=== PATIENT | male | born 1995 | race Caucasian/White ===

== ENCOUNTER 2017-02-04 17:30 | Emergency (ER) | payer SELFPAY ==
[2017-02-04] MEDS ORDERED: PENICILLIN G BENZATHINE 1.2 MILLION UNIT/2 ML DISP.SYRIN IM ONE (20:16)
[2017-02-04] MEDS ORDERED: HYDROCODONE/ACETAMINOPHEN 5-325 MG 6 TAB/DSPK PO PRN (20:16)
--- NOTE | 2017-02-04 20:17 | ER Document Report ---
HPI - HPI Patient complains to provider of: sore throat Onset: Other - 5 days Onset/Duration: Persistent Quality of pain: Achy Pain Level: 2 Context: Patient presents complaining of sore throat for the past 5 days. Patient states he had a fever initially but none today. Associated Symptoms: Earache, Fever, Sore throat. denies: Nonproductive cough, Productive cough, Vomiting Exacerbated by: Denies Relieved by: Denies Similar symptoms previously: Yes Recently seen / treated by doctor: No - ROS ROS below otherwise negative: Yes Systems Reviewed and Negative: Yes All other systems reviewed and negative - CONSTITUTIONAL Constitutional: REPORTS: Fever - EENT EENT: REPORTS: Sore Throat - RESPIRATORY Respiratory: DENIES: Coughing - GASTROINTESTINAL Gastrointestinal: DENIES: Nausea, Patient vomiting - DERM Skin Color: Normal Skin Problems: None Past Medical History - General Information source: Patient - Social History Smoking Status: Current Every Day Smoker Occupation: [employer] Family History: Reviewed & Not Pertinent - Medical History Medical History: Negative Renal/ Medical History: Denies: Hx Peritoneal Dialysis Surgical Hx: Negative Vertical Provider Document - CONSTITUTIONAL Agree With Documented VS: Yes Exam Limitations: No Limitations General Appearance: WD/WN, No Apparent Distress - INFECTION CONTROL TRAVEL OUTSIDE OF THE [place] IN LAST 30 DAYS: No - HEENT HEENT: Atraumatic, Normocephalic, Pharyngeal Exudate, Pharyngeal Tenderness, Pharyngeal Erythema - NECK Neck: Lymphadenopathy-Left, Lymphadenopathy-Right - RESPIRATORY Respiratory: Breath Sounds Normal, No Respiratory Distress O2 Sat by Pulse Oximetry: 100 - CARDIOVASCULAR Cardiovascular: Regular Rate, Regular Rhythm, No Murmur - MUSCULOSKELETAL/EXTREMETIES Musculoskeletal/Extremeties: MAEW - NEURO Level of Consciousness: Awake, Alert, Appropriate - DERM Integumentary: Warm, Dry, No Rash Course - Vital Signs Vital signs: Temp Pulse Resp BP Pulse Ox 98.2 F 74 16 135/69 H 100 02/04/17 17:34 02/04/17 17:34 02/04/17 17:34 02/04/17 17:34 02/04/17 17:34 Discharge - Discharge Clinical Impression: Tonsillitis Condition: Stable Disposition: HOME, SELF-CARE Instructions: Oral Narcotic Medication ([facility]), Tonsillitis ([facility]), Use of Over- The-Counter Ibuprofen ([facility]), Antibiotic Shot ([facility]) Additional Instructions: Return immediately for any new or worsening symptoms Followup with your primary care provider, call tomorrow to make a followup appointment Prescriptions: Naproxen [Naprosyn 250 Nmg Tablet] 1 tab PO BID #14 tablet Forms: Return to Work Referrals: [facility] [Provider Group] - Follow up as needed
[2017-02-04 20:47] VITALS: BP 131/63
== END 2017-02-04 20:46 | disposition home or self-care (01) ==
LOC: ER 17:30
DX: J03.90 Acute tonsillitis, unspecified (principal); R50.9 Fever, unspecified; H92.09 Otalgia, unspecified ear; F17.200 Nicotine dependence, unspecified, uncomplicated
CPT/HCPCS: 99282; 96372; J0561

== ENCOUNTER 2018-01-14 17:36 | Emergency (ER) | payer SELFPAY ==
[2018-01-14] MEDS ORDERED: AZITHROMYCIN 250 MG TABLET PO ONE (17:57)
[2018-01-14] MEDS ORDERED: LIDOCAINE 1% INJ-PF (10 MG/ML) 30 ML SDV INJ ONE (17:57)
[2018-01-14] MEDS ORDERED: ONDANSETRON 4 MG TAB.RAPDIS PO ONE (17:57)
[2018-01-14] MEDS ORDERED: CEFTRIAXONE INJ 250 MG VIAL IM ONE (17:57)
--- NOTE | 2018-01-14 18:20 | ER Document Report ---
HPI - HPI Patient complains to provider of: dysuria and penile discharge Onset: Other - Last week Onset/Duration: Gradual, Persistent Pain Level: 5 Context: 22-year-old male had sex with a new female partner without a condom and now has dysuria in cota discharge. He has been treated in the past before. He has no penile swelling or testicular swelling no testicle or scrotal pain. No perineal pain no anal pain. No pelvic or abdominal pain. No fever or chills. He is uncircumcised. Denies genital lesions Associated Symptoms: None Exacerbated by: Other - Urination Relieved by: Denies - ROS ROS below otherwise negative: Yes Systems Reviewed and Negative: Yes All other systems reviewed and negative Past Medical History - General Information source: Patient - Social History Smoking Status: Current Every Day Smoker Chew tobacco use (# tins/day): No Frequency of alcohol use: None Drug Abuse: None Lives with: Family Family History: Reviewed & Not Pertinent Patient has suicidal ideation: No Patient has homicidal ideation: No - Medical History Medical History: Negative Renal/ Medical History: Denies: Hx Peritoneal Dialysis Surgical Hx: Negative Vertical Provider Document - CONSTITUTIONAL Agree With Documented VS: Yes Exam Limitations: No Limitations - INFECTION CONTROL TRAVEL OUTSIDE OF THE [place] IN LAST 30 DAYS: No - HEENT HEENT: Normocephalic - NECK Neck: Supple - GI/ABDOMEN Gastrointestinal: Abdomen Soft, Abdomen Non-Tender - MUSCULOSKELETAL/EXTREMETIES Musculoskeletal/Extremeties: MAEW - NEURO Level of Consciousness: Awake - DERM Integumentary: No Rash Course - Re-evaluation Re-evalutation: 01/14/18 20:27 Positive gonorrhea which I treated him for he is supposed to call me back at 9: 00 for the results. I called the patient and told him the results nation out of and course for 2 weeks to make sure the symptoms go away. 01/14/18 20:28 Discharge - Discharge Clinical Impression: Urethritis Condition: Good Disposition: HOME, SELF-CARE Instructions: Azithromycin ([facility]), Chlamydia ([facility]), Gonorrhea ([facility]), Rocephin ( [facility]) Additional Instructions: Call me at 9 PM for the STD culture results at [phone] rocephin treats possible gonorrhea Azithromycin treat possible chlamydia Use condoms Partner will need treatment if you are positive
[2018-01-14 18:21] LABS: AMORPHOUS SEDIMENT,URINE TRACE /HPF; APPEARANCE,URINE SLIGHTLY-CLOUDY; BILIRUBIN,URINE NEGATIVE (NEGATIVE); COLOR,URINE YELLOW; GLUCOSE, URINE NEGATIVE (NEGATIVE); KETONES,URINE NEGATIVE (NEGATIVE); LEUKOCYTE ESTERASE,URINE LARGE (NEGATIVE); NITRITE,URINE NEGATIVE (NEGATIVE); PROTEIN,URINE NEGATIVE (NEGATIVE); URINE SPECIFIC GRAVITY 1.011; UROBILINOGEN,URINE NEGATIVE mg/dL (<2.0)
[2018-01-14 19:36] LABS: CHLAM PCR NOT DETECTED (NOT DETECT); GON PCR DETECTED (NOT DETECT)
[2018-01-14 20:28] VITALS: BP 129/80
== END 2018-01-14 18:50 | disposition home or self-care (01) ==
LOC: ER 17:36
DX: A54.01 Gonococcal cystitis and urethritis, unspecified (principal); F17.200 Nicotine dependence, unspecified, uncomplicated
CPT/HCPCS: 99283; 96372; 87086; 81001; 87491; 87591; S0119; J3490; J0696

== ENCOUNTER 2019-01-17 19:00 | Emergency (ER) | payer SELFPAY ==
[2019-01-17] MEDS ORDERED: CEFTRIAXONE INJ 250 MG VIAL IM ONE (19:33)
[2019-01-17] MEDS ORDERED: AZITHROMYCIN 250 MG TABLET PO ONE (19:33)
[2019-01-17] MEDS ORDERED: LIDOCAINE 1% INJ-PF (10 MG/ML) 30 ML SDV INJ ONE (19:33)
[2019-01-17] MEDS ORDERED: METRONIDAZOLE 500 MG TABLET PO ONE (19:55)
--- NOTE | 2019-01-17 19:57 | ER Document Report ---
HPI - HPI Patient complains to provider of: Penile discharge Time Seen by Provider: 01/17/19 19:48 Onset: Other - 2 days Onset/Duration: Persistent Quality of pain: Burning Pain Level: 4 Context: Patient presents complaining of penile discharge for the past 2 days with burning with urination. Patient states she has had these symptoms before when he had an STD in the past and suspects the same today. Associated Symptoms: Other - Penile discharge. denies: Fever, Sore throat Exacerbated by: Denies Relieved by: Denies Similar symptoms previously: Yes Recently seen / treated by doctor: No - ROS ROS below otherwise negative: Yes Systems Reviewed and Negative: Yes All other systems reviewed and negative - CONSTITUTIONAL Constitutional: DENIES: Fever, Chills - EENT EENT: DENIES: Sore Throat - GASTROINTESTINAL Gastrointestinal: DENIES: Abdominal Pain, Nausea, Patient vomiting - URINARY Urinary: REPORTS: Dysuria. DENIES: Urgency, Frequency - REPRODUCTIVE Reproductive: REPORTS: Abnormal bleeding / discharge - MUSCULOSKELETAL Musculoskeletal: DENIES: Back Pain - DERM Skin Color: Normal Skin Problems: None Past Medical History - General Information source: Patient - Social History Smoking Status: Current Every Day Smoker Smoking Education Provided: Yes Frequency of alcohol use: Occasional Drug Abuse: Marijuana Occupation: [employer] Family History: Reviewed & Not Pertinent - Medical History Medical History: Negative Renal/ Medical History: Denies: Hx Peritoneal Dialysis Surgical Hx: Negative Vertical Provider Document - CONSTITUTIONAL Agree With Documented VS: Yes Exam Limitations: No Limitations General Appearance: WD/WN, No Apparent Distress - INFECTION CONTROL TRAVEL OUTSIDE OF THE [place] IN LAST 30 DAYS: No - HEENT HEENT: Atraumatic, Normocephalic - NECK Neck: Normal Inspection, Supple - RESPIRATORY Respiratory: Breath Sounds Normal, No Respiratory Distress - CARDIOVASCULAR Cardiovascular: Regular Rate, Regular Rhythm - GI/ABDOMEN Gastrointestinal: Abdomen Soft - REPRODUCTIVE Male Genitalia: Abnormal Inspection - Watery yellow-colored drainage from penis, no scrotal tenderness or swelling, no abnormal rashes or skin lesions to penis. RN as standby Notes: Mild left inguinal lymphadenopathy - BACK Back: Normal Inspection - MUSCULOSKELETAL/EXTREMETIES Musculoskeletal/Extremeties: KENNY JENKINS - NEURO Level of Consciousness: Awake, Alert, Appropriate - DERM Integumentary: Warm, Dry, No Rash Course - Vital Signs Vital signs: Temp Pulse Resp BP Pulse Ox 98.6 F 79 14 126/65 H 98 07/03/19 19:14 01/17/19 19:14 01/17/19 19:14 01/17/19 19:14 01/17/19 19:14 - Laboratory Laboratory results interpreted by me: 01/17/19 20:44 Labs- Entire Visit 01/17/19 19:35 Urine Color YELLOW Urine Appearance CLEAR Urine pH 7.0 Ur Specific Ballinger 1.021 Urine Protein NEGATIVE Urine Glucose (UA) NEGATIVE Urine Ketones NEGATIVE Urine Blood NEGATIVE Urine Nitrite NEGATIVE Urine Bilirubin NEGATIVE Urine Urobilinogen NEGATIVE Ur Leukocyte Esterase SMALL H Urine WBC (Auto) 30 Urine RBC (Auto) 2 Urine Mucus (Auto) RARE Urine Ascorbic Acid NEGATIVE Discharge - Discharge Clinical Impression: Penile discharge, Concern about STD in male without diagnosis Condition: Stable Disposition: HOME, SELF-CARE Instructions: Azithromycin ([facility]), Metronidazole ([facility]), Rocephin ([facility]) Additional Instructions: Return immediately for any new or worsening symptoms Followup with your primary care provider, call tomorrow to make a followup appointment Safe sex practices Follow-up with the health department for any additional STD testing or if you would like to have HIV testing Forms: Smoking Cessation Education [facility] - Follow up in 3-5 days
[2019-01-17 20:08] LABS: APPEARANCE,URINE CLEAR; BILIRUBIN,URINE NEGATIVE (NEGATIVE); COLOR,URINE YELLOW; GLUCOSE, URINE NEGATIVE (NEGATIVE); KETONES,URINE NEGATIVE (NEGATIVE); LEUKOCYTE ESTERASE,URINE SMALL (NEGATIVE); NITRITE,URINE NEGATIVE (NEGATIVE); PROTEIN,URINE NEGATIVE (NEGATIVE); URINE SPECIFIC GRAVITY 1.021; UROBILINOGEN,URINE NEGATIVE mg/dL (<2.0)
[2019-01-17 20:57] VITALS: BP 103/62
[2019-01-17 21:37] LABS: CHLAM PCR NOT DETECTED (NOT DETECT)
== END 2019-01-17 21:14 | disposition home or self-care (01) ==
LOC: ER 19:00
DX: R36.9 Urethral discharge, unspecified (principal); Z20.2 Contact with and (suspected) exposure to infections with a predominantly sexual mode of transmission; R30.9 Painful micturition, unspecified; F17.200 Nicotine dependence, unspecified, uncomplicated
CPT/HCPCS: 99283; 96372; 81001; 87491; 87591; J3490; J0696